=== PATIENT | female | born 1990 | race American Indian/Alaskan Native ===

== ENCOUNTER 2017-05-12 13:04 | Emergency (ER) | payer BC | END 2017-05-12 13:05 | disposition left against medical advice (07) | LOC: ED 13:04 | DX: R10.9 Unspecified abdominal pain (principal); R51 Headache; R11.10 Vomiting, unspecified; Z53.21 Procedure and treatment not carried out due to patient leaving prior to being seen by health care provider ==

== ENCOUNTER 2017-05-16 21:12 | Emergency (ER) | payer SELFPAY ==
[2017-05-17] LABS: Basophils % (Auto) 0.3 % (0.0-1.8); Hematocrit 36.6 % (30.3-42.9); Hemoglobin 11.9 gm/dl (10.1-14.3); Mean Corpuscular HGB Conc 33 % (30-34); Mean Corpuscular Hemoglobin 33 pg (28-32); Mean Corpuscular Volume 102 fl (79-97); Platelet Count 178 K/mm3 (140-440); Red Blood Count 3.58 M/mm3 (3.65-5.03); White Blood Count 6.7 K/mm3 (4.5-11.0)
[2017-05-17 01:19] LABS: Anion Gap 14 mmol/L; BUN/Creatinine Ratio 16.66; Blood Urea Nitrogen 10 mg/dL (7-17); Calcium 9.1 mg/dL (8.4-10.2); Carbon Dioxide 25 mmol/L (22-30); Chloride 101.7 mmol/L (98-107); Glucose 103 mg/dL (65-100); Potassium 3.6 mmol/L (3.6-5.0); Sodium 137 mmol/L (137-145)
--- NOTE | 2017-05-17 02:17 | Emergency Department Report ---
- General Chief Complaint: Upper Respiratory Infection Stated Complaint: CHEST PAIN Time Seen by Provider: 05/17/17 02:11 Source: patient Mode of arrival: Ambulatory Limitations: No Limitations - History of Present Illness Initial Comments: Patient is a 27-year-old female complaining of 2 days of worsening cough chest pain and shortness of breath. Patient has a known history of asthma and says that this does not feel like her typical asthma. She feels like when she exerts herself she gets very short of breath. She has a productive cough with some greenish sputum. She denies fevers or chills. MD Complaint: nasal congestion, other (off) -: days(s) (2) Severity: moderate Consistency: constant Improves With: nothing Worsens With: deep breaths Associated Symptoms: denies: fever, chills, myalgias Treatments Prior to Arrival: none - Related Data Home Medications Medication Instructions Recorded Confirmed Last Taken Pantoprazole [Protonix TAB] 40 mg PO QDAY 07/17/13 07/17/13 Unknown Previous Rx's Medication Instructions Recorded Last Taken Type HYDROcodone/APAP 5-325 [[place] 1 each PO Q6HR PRN #20 tablet 07/17/13 Unknown Rx 5/325 mg] Promethazine HCl [Promethazine] 25 mg PO Q6H PRN #30 tablet 07/17/13 Unknown Rx ALBUTEROL Inhaler [ProAir HFA 2 puff IH QID PRN #1 inhalation 05/17/17 Unknown Rx Inhaler] Ibuprofen [Motrin 600 MG tab] 600 mg PO Q8H PRN #30 tablet 05/17/17 Unknown Rx guaiFENesin/CODEINE [Robitussin AC] 10 ml PO Q8HR PRN #200 ml 05/17/17 Unknown Rx Allergies Allergy/AdvReac Type Severity Reaction Status Date / Time No Known Allergies Allergy Verified 07/13/13 07:51 ED Review of Systems ROS: Stated complaint: CHEST PAIN Other details as noted in HPI Constitutional: denies: chills, fever Eyes: denies: eye pain, eye discharge ENT: denies: ear pain, throat pain Respiratory: cough, shortness of breath Cardiovascular: chest pain Gastrointestinal: denies: abdominal pain, nausea, vomiting, diarrhea, constipation Musculoskeletal: denies: back pain Skin: denies: rash Neurological: denies: headache, weakness ED Past Medical Hx - Past Medical History Previous Medical History?: No - Surgical History Past Surgical History?: No - Family History Family history: no significant, other (no history of blood clot) - Social History Smoking Status: Current Some Day Smoker Substance Use Type: Marijuana - Medications Home Medications: Home Medications Medication Instructions Recorded Confirmed Last Taken Type HYDROcodone/APAP 5-325 [[place] 1 each PO Q6HR PRN #20 tablet 07/17/13 Unknown Rx 5/325 mg] Pantoprazole [Protonix TAB] 40 mg PO QDAY 07/17/13 07/17/13 Unknown History Promethazine HCl [Promethazine] 25 mg PO Q6H PRN #30 tablet 07/17/13 Unknown Rx ALBUTEROL Inhaler [ProAir HFA 2 puff IH QID PRN #1 inhalation 05/17/17 Unknown Rx Inhaler] Ibuprofen [Motrin 600 MG tab] 600 mg PO Q8H PRN #30 tablet 05/17/17 Unknown Rx guaiFENesin/CODEINE [Robitussin AC] 10 ml PO Q8HR PRN #200 ml 05/17/17 Unknown Rx ED Physical Exam - General Limitations: No Limitations General appearance: alert, in no apparent distress - Head Head exam: Present: atraumatic, normocephalic - Eye Eye exam: Present: normal appearance - ENT ENT exam: Present: mucous membranes moist - Neck Neck exam: Present: normal inspection - Respiratory Respiratory exam: Present: normal lung sounds bilaterally. Absent: respiratory distress, wheezes, rales - Cardiovascular Cardiovascular Exam: Present: regular rate, normal rhythm. Absent: systolic murmur, diastolic murmur, rubs, gallop - GI/Abdominal GI/Abdominal exam: Present: soft, normal bowel sounds - Extremities Exam Extremities exam: Present: normal inspection - Back Exam Back exam: Present: normal inspection - Neurological Exam Neurological exam: Present: alert, oriented X3 - Psychiatric Psychiatric exam: Present: normal affect, normal mood - Skin Skin exam: Present: warm, dry, intact, normal color. Absent: rash ED Course Vital Signs 05/16/17 21:31 Temperature 98.3 F Pulse Rate 92 H Respiratory 20 Rate Blood Pressure 139/96 O2 Sat by Pulse 100 Oximetry ED Medical Decision Making - Lab Data Result diagrams: 05/16/17 23:23 05/16/17 23:23 Laboratory Results - last 24 hr 05/16/17 05/16/17 05/16/17 23:23 23:23 23:23 WBC 6.7 RBC 3.58 L Hgb 11.9 Hct 36.6 MCV 102 H MCH 33 H MCHC 33 RDW 13.0 L Plt Count 178 Lymph % (Auto) 44.2 H Weber % (Auto) 7.2 Eos % (Auto) 2.0 Baso % (Auto) 0.3 Lymph # 2.9 Weber # 0.5 Eos # 0.1 Baso # 0.0 Seg Neutrophils % 46.3 Seg Neutrophils # 3.1 Sodium 137 Potassium 3.6 Chloride 101.7 Carbon Dioxide 25 Anion Gap 14 BUN 10 Creatinine 0.6 L Estimated GFR > 60 BUN/Creatinine Ratio 16.66 Glucose 103 H Calcium 9.1 HCG, Qual Negative - EKG Data -: EKG Interpreted by Me EKG shows normal: sinus rhythm, axis, intervals, QRS complexes, ST-T waves Rate: normal - EKG Data 05/17/17 02:18 Rate of 88 - Radiology Data Chest x-ray unremarkable - Medical Decision Making Patient is a 27-year-old female here with what sounds like URI-type symptoms however she also complains of chest pain that is pleuritic in nature. She has no risk factors for PE and no family history of PE. I'll check a d-dimer and if negative plan discharge the patient home with an inhaler and NSAIDs. D-dimer negative. Patient to be discharged home with NSAIDs inhaler and cough medication Portions of this chart were dictated with dictation software. There may be dictation errors contained within this note. Critical care attestation.: If time is entered above; I have spent that time in minutes in the direct care of this critically ill patient, excluding procedure time. ED Disposition Clinical Impression: URI (upper respiratory infection), Cough Disposition: [id number] TO HOME OR SELFCARE Is pt being admited?: No Condition: Stable Instructions: Upper Respiratory Infection (ED), Viral Syndrome (ED) Prescriptions: ALBUTEROL Inhaler [ProAir HFA Inhaler] 2 puff IH QID PRN #1 inhalation PRN Reason: Shortness Of Breath guaiFENesin/CODEINE [Robitussin AC] 10 ml PO Q8HR PRN #200 ml PRN Reason: Cough Ibuprofen [Motrin 600 MG tab] 600 mg PO Q8H PRN #30 tablet PRN Reason: Pain Referrals: PRIMARY CARE, [Primary Care Provider] - 3-5 Days
[2017-05-17 06:25] VITALS: BP 132/85
--- NOTE | 2017-05-17 09:47 | XRay Report ---
ROUTINE CHEST, TWO VIEWS: History: Shortness of breath and chest pain. PA and lateral views demonstrate the heart and mediastinal contour to be of normal size and shape. The lungs are clear and fully expanded and the soft tissues and bony structures are normal. IMPRESSION: Normal study..
== END 2017-05-17 06:24 | disposition home or self-care (01) ==
LOC: ED 21:12
DX: J06.9 Acute upper respiratory infection, unspecified (principal); R05 Cough; F17.200 Nicotine dependence, unspecified, uncomplicated; F12.10 Cannabis abuse, uncomplicated
CPT/HCPCS: 36415; 71020; 80048; 84703; 85025; 85379; 93005; 93010